=== PATIENT | male | born 1985 | race Caucasian/White ===

== ENCOUNTER 2016-12-04 16:19 | Emergency (ER) | payer BC ==
[~2016-12-04] VITALS: Ht 175.3 cm; Wt 104.3 kg
[~2016-12-04 16:19] MED LIST: AMOXICILLIN500 M1 PO; AUGMENTIN PO; BENTYL20 M1 PO; CIPRO PO; DARVOCET-N 1001 TAB PO; DICLOFENAC PO; DOXYCYCLINE PO; EC-NAPROSYN500 MG PO; IBUPROFEN PO; LORTAB 7.5-5001 TAB PO; MOBIC PO; NO MEDICATIONS; NORCO 10/325 TA1 TAB PO; PERCOCET5/325 PO; TORADOL10 MG PO; TYLENOL #3 PO; VICODIN 5/500 T1 TAB PO; VOLTAREN50 MG PO; ZOFRAN PO
== END 2016-12-04 19:03 | disposition home or self-care (01) ==
LOC: SED 16:19
DX: S61.412A Laceration without foreign body of left hand, initial encounter (principal); W26.8XXA Contact with other sharp object(s), not elsewhere classified, initial encounter; Y92.009 Unspecified place in unspecified non-institutional (private) residence as the place of occurrence of the external cause
CPT/HCPCS: 12001; 90471; 90715; 99283